=== PATIENT | male | born 1975 | race Caucasian/White ===

== ENCOUNTER 2018-07-04 22:20 | Emergency (ER) | payer OTHER ==
[~2018-07-04] VITALS: Ht 177.8 cm; Wt 90.7 kg
[2018-07-04] MEDS ORDERED: HYDROCODONE/APAP 10-325 MG TABLET PO ONE (23:00)
[2018-07-04] MEDS ORDERED: HYDROCODONE/APAP 10-325 MG TABLET ONE (23:07)
--- NOTE | 2018-07-04 23:13 | NUR ---
Patient in bed, no acute distress noted. VSS
--- NOTE | 2018-07-05 00:04 | NUR ---
[place] HERRON at bedside for patient update.
--- NOTE | 2018-07-05 00:12 | NUR ---
Patient discharged to home in stable conditon. Written and verbal after care instructions given. Patient verbalizes understanding of instructions. Ambulated from ER with stable gait. All belongings with patient.
[2018-07-05 00:14] VITALS: BP 140/82
== END 2018-07-05 00:15 | disposition home or self-care (01) ==
LOC: ER 22:20
DX: J10.1 Influenza due to other identified influenza virus with other respiratory manifestations (principal)
CPT/HCPCS: 36415; 86403; 87070; 87400; A4663

== ENCOUNTER 2020-03-06 00:42 | Emergency (ER) | payer SELFPAY ==
--- NOTE | 2020-03-06 00:51 | NUR ---
Patient decided to not be seen and states, "I will just follow up with my primary care doctor." Patient left without being triaged, able to ambulate with steady gait accompanied by .
== END 2020-03-06 00:53 | disposition left against medical advice (07) ==
LOC: ER 00:51
DX: Z21 Asymptomatic human immunodeficiency virus [HIV] infection status (principal)